=== PATIENT | female | born 1960 ===

== ENCOUNTER 2025-02-06 09:45 | Inpatient (IN) | payer OTHER ==
[~2025-02-06] VITALS: Ht 167.6 cm; Wt 77.1 kg
[~2025-02-06 09:45] MED LIST: BISOPROLOL-HCTZ1 TA2 PO; CIPRO500 MG PO; PERCOCET 5/3251 TAB PO; SIMVASTATIN40 MG PO
[2025-02-06] MEDS ORDERED: ZOLOFT50 MG PO (13:19)
[2025-02-06] MEDS ORDERED: XANAX1 MG PO (13:19)
[2025-02-06 13:23] VITALS: BP 118/77
[2025-02-06 13:45] LABS: PH,URINE 6.5 (5.0-8.0); URINE APPEARANCE Clear; URINE BILIRRUBIN Negative (NEGATIVE); URINE BLOOD Negative; URINE COLOR Yellow; URINE GLUCOSE Negative (NEGATIVE); URINE KETONE Negative (NEGATIVE); URINE LEUKOCYTE Negative; URINE NITRATE Negative; URINE PROTEIN Negative (NEGATIVE)
[2025-02-06 13:46] LABS: URINE BACTERIA 2221.2 uL (0.0-1933); URINE EPITHELIAL CELLS 11.8 uL (0.0-38.8); URINE RBC 16.6 uL (0.0-20.8); URINE WBC 5.2 uL (0.0-23.2)
[2025-02-06 13:48] LABS: BASO % 0.7 % (0.1-1.2); EOS # 0.19 (0.04-0.54); EOS % 2.8 % (0.7-7.0); HEMATOCRIT 41.7 % (34.1-44.9); LYMPH # 3.23 (1.18-3.74); LYMPH % 46.8 % (19.3-53.1); MEAN CORPUSCULAR HEMOGLOBIN 28.5 pg (25.6-32.2); MONO % 5.8 % (4.7-12.5); NEUT # 3.02 (1.56-6.13); NEUT % 43.8 % (34.0-71.1); PLATELET COUNT 208 K/uL (163-369); RED BLOOD COUNT 4.92 M/uL (3.93-5.22); RED CELL DISTRIBUTION WIDTH 13.8 % (11.6-14.4)
[2025-02-06 13:50] LABS: URINE CAST 0.14 uL (0.0-1.40)
[2025-02-06 14:09] LABS: PARTIAL THROMBOPLASTIN TIME 24.8 SECONDS (22.0-34.0); PROTHROMBIN TIME 10.9 SECONDS (9.0-11.5)
[2025-02-06 14:42] LABS: ALBUMIN 4.1 gm/dL (3.4-5.0); BILIRUBIN TOTAL 0.53 mg/dL (0.3-1.2); CALCIUM 10.3 mg/dL (8.5-10.1); CREATININE SERUM 0.6 mg/dL (0.55-1.02); GFR 100.33; GLOBULINA 3.9 G/DL (2.4-3.5); POTASSIUM 3.74 mEq/L (3.5-5.1)
[2025-02-12] MEDS ORDERED: DEXAMETHASONE SODIUM PHOSPHATE 4 MG/ML VIAL ONE (09:23)
[2025-02-12] MEDS ORDERED: ENALAPRILAT DIHYDRATE 1.25 MG/ML VIAL IV PRN (09:30)
[2025-02-12] MEDS ORDERED: ONDANSETRON HCL 2 MG/ML VIAL IV PRN (09:30)
[2025-02-12] MEDS ORDERED: INSULIN LISPRO 1,000 UNIT/10 ML UNITS SUBCUTANEO PRN (09:30)
[2025-02-12] MEDS ORDERED: DEXTROSE 50 % IN WATER 0.5 G/ML VIAL IV PRN (09:30)
[2025-02-12] MEDS ORDERED: CEFAZOLIN SODIUM 1,000 MG VIAL ONE (10:04)
[2025-02-12] MEDS ORDERED: MORPHINE SULFATE 4 MG/ML VIAL IV ONE ×2 (12:25→12:55)
[2025-02-12] MEDS ORDERED: MAG HYDROX/ALUMINUM HYD/SIMETH 30 ML BLIST.PACK PO ONE (15:54)
[2025-02-12] MEDS ORDERED: LIDOCAINE HCL 60 ML,MAG HYDROX/ALUMINUM HYD/SIMETH 60 ML,DIPHENHYDRAMINE HCL 150 MG MM SCH (17:00)
[2025-02-12] MEDS ORDERED: ACETAMINOPHEN 500 MG GEL..CAP PO SCH (17:00)
[2025-02-12] MEDS ORDERED: CYCLOBENZAPRINE HCL 5 MG TABLET PO SCH (17:00)
[2025-02-12] MEDS ORDERED: GABAPENTIN 100 MG CAPSULE PO SCH (17:00)
[2025-02-12] MEDS ORDERED: ALPRAzolam 1 MG TABLET PO SCH (17:00)
[2025-02-12] MEDS ORDERED: TRAMADOL HCL 50 MG TABLET PO SCH (17:00)
[2025-02-12] MEDS ORDERED: GABAPENTIN 100 MG CAPSULE PO ONE (18:38)
[2025-02-12 19:05] VITALS: BP 144/76; O2SAT 97
[2025-02-12] MEDS ORDERED: PANTOPRAZOLE SODIUM 40 MG/VIAL VIAL IV PUSH SCH (21:00)
[2025-02-13 00:36] VITALS: BP 115/75; O2SAT 99
[2025-02-13] MEDS ORDERED: HYDROCHLOROTHIAZIDE 12.5 MG CAPSULE PO SCH (09:00)
[2025-02-13] MEDS ORDERED: SIMVASTATIN 40 MG TABLET PO SCH (09:00)
== END 2025-02-13 13:18 | disposition home or self-care (01) | DRG 627 ==
LOC: SURH 02-12 05:56 → O/R 02-12 05:56 → SURH 02-12 07:00
PROVIDERS: ADMIT Surgery; ATTEND Surgery
PROC: 0GBP0ZZ Excision of Left Inferior Parathyroid Gland, Open Approach (ICD-10-PCS; principal; 2025-02-12 07:00)
DX: E21.0 Primary hyperparathyroidism (principal)